=== PATIENT | male | born 1950 | race Caucasian/White ===

== ENCOUNTER → 2017-02-06 | Outpatient (CLI) | payer MEDICARE, BC ==
[~2017-02-06] MED LIST: ACTOS 45MG45 MG/TAB PO; ARAVA 20MG TABL20 MG PO; ATENOLOL100 MG PO; AVODART 0.5MG0.5 MG PO; BYETTA SQ; CARTIA XT240 MG PO; DILAUDID 2MG TAB2 MG PO; FERREX 150150 MG PO; FOLIC ACID 11 MG/TA1 PO; FORTAMET1000 MG PO; GLUCOPHAGE500 MG/TAB PO; HUMALOG100 U/ML SQ; INFANTS AQU400 IU/ML PO; LANTUS100 U/ML SC; LEVOTHYROXIN0.112 MG PO; LISINOPRIL20 MG PO; MAGNESIUM OXIDE PO; NORCO 325 MG-101 TAB PO; PREDNISONE 5MG5 MG PO; PREVACID 30MG30 M1 PO; PRILOSEC 20MG20 MG PO; TRICOR 48MG48 MG PO; VITAMIN D PO; ZETIA10 MG PO
== END ==
LOC: COL.RAD 09:08
DX: M51.06 Intervertebral disc disorders with myelopathy, lumbar region (principal); M25.78 Osteophyte, vertebrae; M25.551 Pain in right hip
CPT/HCPCS: A9585